=== PATIENT | male | born 1970 | race Caucasian/White ===

== ENCOUNTER 2025-02-05 13:42 | Emergency (ER) | payer BC ==
[~2025-02-05] VITALS: Ht 165.1 cm; Wt 80.6 kg
[2025-02-05] MEDS ORDERED: ISOVUE-370 76% 100 ML VIAL As Ordered ONE (14:13)
[2025-02-05 14:39] LABS: BASO # 0.0 10^3/uL (0.0-0.2); BASO % 0.6 % (0.0-1.0); EOS # 0.2 10^3/uL (0.0-0.5); EOS % 2.6 % (0.0-3.0); LYMPH # 2.5 10^3/uL (1.5-5.0); LYMPH % 34.6 % (24.0-44.0); MONO # 0.6 10^3/uL (0.0-0.8); MONO % 8.2 % (2.0-8.0); NEUTROPHILS # 3.9 10^3/uL (1.5-8.5); NEUTROPHILS % 53.7 % (36.0-66.0); PLATELET COUNT, AUTOMATED 312 10^3/uL (150-450)
[2025-02-05 14:55] LABS: INR 0.88
[2025-02-05 15:02] LABS: CK-MB VALUE MASS 1.2 NG/ML (<3.6)
[2025-02-05 15:07] LABS: CPK CREATINE PHOSPHOKINASE 135 U/L (46-171); MB/CK RELATIVE INDEX 0.88 (< OR =4)
[2025-02-05] MEDS: MECLIZINE 25 MG TABLET PO ONE (17:57)
[2025-02-05 20:36] VITALS: BP 142/80; TEMP 96.5; O2SAT 96
== END 2025-02-05 20:44 | disposition home or self-care (01) ==
LOC: M ED 13:42
DX: R42 Dizziness and giddiness (principal); F17.210 Nicotine dependence, cigarettes, uncomplicated
CPT/HCPCS: 36415; 70450; 70496; 70498; 70551; 71045; 80047; 82550; 82553; 84484; 85025; 85610; 85730; 86850; 86900; 86901; 93005; 93041; 94760; 99285; Q9967